=== PATIENT | female | born 1990 | race Caucasian/White ===

== ENCOUNTER 2016-12-06 16:50 | Emergency (ER) | payer BC, MEDICAID ==
[2016-12-06 17:47] VITALS: BP 114/71
[2016-12-06] MEDS ORDERED: Aspirin Low Dose CHEW TAB* 81 MG PO ONE ×2 (18:54)
--- NOTE | 2016-12-06 19:16 | ED ---
HPI Chest Pain - HPI Summary HPI Summary: Patient is a 26yo recently post- otherwise healthy female presenting with chest pain on deep inspiration. [facility] referred her here. She states this has been present for about 2 days. Denies leg pain. Denies cough. Recent illness 3-4 weeks ago but has felt better since. Denies weakness. Feel SOB d/t pain upon inspiration. Denies feelings of palpitations or heart history. denies calf pain or swelling. - History of Current Complaint Chief Complaint: EDShoulderClavicQuiquenj Hx Obtained From: Patient Onset/Duration: Started Days Ago - 6 days ago Timing: Constant Initial Severity: Moderate Current Severity: Moderate Pain Intensity: 6 Pain Scale Used: 0-10 Numeric Chest Pain Location: Discrete at: - right chest wall Chest Pain Radiates: No Character: Burning, Pressure/Squeezing Aggravating Factor(s): Deep Breaths Alleviating Factor(s): Nothing Associated Signs and Symptoms: Positive: Chest Pain, Shortness of Breath - Risk Factors Pulmonary Embolism Risk Factors: - post - Allergy/Home Medications Allergies/Adverse Reactions: Allergies Allergy/AdvReac Type Severity Reaction Status Date / Time No Known Allergies Allergy Verified 12/06/16 17:47 PMH/Surg Hx/FS Hx/Imm Hx Previously Healthy: Yes Endocrine/Hematology History: Reports: Hx Thyroid Disease Denies: Hx Diabetes Cardiovascular History: Denies: Hx Hypertension Respiratory History: Reports: Hx Asthma - albuterol mdi as needed Denies: Hx Chronic Obstructive Pulmonary Disease (COPD) GI History: Denies: Hx Ulcer Psychiatric History: Reports: Hx Anxiety Infectious Disease History: No Infectious Disease History: Denies: Hx Clostridium Difficile, Hx Hepatitis, Hx Human Immunodeficiency Virus (HIV), Hx of Known/Suspected MRSA, Hx Shingles, Hx Tuberculosis, Traveled Outside the in Last 30 Days - Social History Occupation: Employed Full-time Lives: With Family Alcohol Use: None Substance Use Type: Reports: None Smoking Status (MU): Never Smoked Tobacco Review of Systems Constitutional: Negative Eyes: Negative ENT: Negative Positive: Chest Pain - right chest wwall Positive: Shortness Of Breath Gastrointestinal: Negative Musculoskeletal: Negative Skin: Negative Neurological: Negative Positive: Anxious All Other Systems Reviewed And Are Negative: Yes Physical Exam Triage Information Reviewed: Yes Vital Signs On Initial Exam: Initial Vitals Temp Pulse Resp BP Pulse Ox 98.4 F 63 16 114/71 100 01/20/17 16:50 12/06/16 16:50 12/06/16 16:50 12/06/16 16:50 12/06/16 16:50 Vital Signs Reviewed: Yes Appearance: Positive: Well-Appearing, No Pain Distress, Well-Nourished Skin: Positive: Warm, Skin Color Reflects Adequate Perfusion Head/Face: Positive: Normal Head/Face Inspection Eyes: Positive: Normal, EOMI, LYDIA, Conjunctiva Clear Neck: Positive: Supple, Nontender, No Lymphadenopathy Respiratory/Lung Sounds: Positive: Clear to Auscultation, Breath Sounds Present Cardiovascular: Positive: Normal Musculoskeletal: Positive: Normal, Strength/ROM Intact Neurological: Positive: Normal, Sensory/Motor Intact Psychiatric: Positive: Normal Diagnostics - Vital Signs Vital Signs Temp Pulse Resp BP Pulse Ox 12/06/16 16:50 98.4 F 63 16 114/71 100 - Laboratory Result Diagrams: 12/06/16 19:49 12/06/16 19:49 Lab Statement: Any lab studies that have been ordered have been reviewed, and results considered in the medical decision making process. - CT No standard instances CT Interpretation: Positive (See Comments) - pleural effusion, cardiomegaly Chest Pain Course/Dx - Course Course Of Treatment: Patient recent 5 weeks post-. pain with deep inspiration. Wells criteria = moderate probability of DVT/PE. patient describes as pain with SOB. denies recent travel, leg pain. recent viral illness 3 weeks ago. CTA shows cardiomegaly and rt pleural effusion likely from pleuritis from viral illness. Patient encouraged naproxen 500mg twice daily and discussed risks for breast feeding while on naproxen. Dr. Elias consulted with provider. Assessment/Plan: naproxen 500mg twice daily. return precautions. - Chest Pain Differential Diagnosis/HQI/PQRI: Chest Wall, Lower Respiratory Infection, Pulmonary Edema, Pulmonary Embolism, Other: - Diagnoses Provider Diagnoses: Pleural effusion, right Is Visit Related: No Discharge - Discharge Plan Condition: Stable Disposition: HOME Prescriptions: Naproxen [Naproxen Dr] 500 mg PO Q8H #30 tab MDD 3 Naproxen [Naproxen 500 MG TABS] 500 mg PO BID #30 tab MDD 2 Patient Education Materials: Pleurisy (ED), Pleural Effusion (ED) Referrals: Sarthak Roman MD [Primary Care Provider] - Additional Instructions: You have been diagnosed with a pleural effusion. Take Naprozen 500mg twice daily for 7 days as needed for pain. If you develop worsening shortness of breath, fever or chest pain, come back to ED.
[2016-12-06 20:03] LABS: Hematocrit 41 % (35-47); Hemoglobin 13.5 g/dl (12.0-16.0); Mean Corpuscular HGB Conc 33 g/dl (31-36); Mean Corpuscular Hemoglobin 29 pg (27-31); Mean Corpuscular Volume 89 fL (80-97); Mean Platelet Volume 9 um3 (7.4-10.4); Red Blood Count 4.65 10^6/ul (4.0-5.4); Red Cell Distribution Width 13 % (10.5-15); White Blood Count 11.5 10^3/ul (3.5-10.8)
[2016-12-06 20:18] LABS: Albumin 4.2 g/dL (3.2-5.2); BUN/Creatinine Ratio 18.5 (8-20); Calcium 9.4 mg/dL (8.6-10.3); EGFR African American 142.8 (>60); EGFR Non-African American 111.1 (>60); Globulin 3.1 g/dL (2-4); Potassium 3.5 mmol/L (3.5-5.0); Total Bilirubin 0.3 mg/dL (0.2-1.0); Total Protein 7.3 g/dL (6.4-8.9)
[2016-12-06] MEDS ORDERED: Iohexol 350* (CONTRAST) 500 ML MDV IV ONE (20:21)
--- NOTE | 2016-12-06 20:56 | RAD ---
INDICATION: Pleuritic chest pain; . Intermittent RIGHT shoulder pain with deep inspiration. COMPARISON: None. TECHNIQUE: Multidetector CT images were obtained from the lung apices to the upper abdomen with 63 mL Omnipaque 350 IV contrast. Pulmonary angiogram protocol. Multiplanar reformation including with maximum intensity projection. REPORT: Small dependent RIGHT pleural effusion and minimal bibasilar dependent atelectasis. Negative for pneumothorax. Negative for thoracic lymphadenopathy. Cardiomegaly. Negative for pericardial effusion. Accounting for motion artifact the thoracic aorta is unremarkable. Motion artifact limits the CT pulmonary angiogram. No compelling filling defects are identified from the main to the segmental and where conspicuous the subsegmental pulmonary arteries to raise concern for pulmonary embolism. Unremarkable Limited images through the upper abdomen. Unremarkable osseous structures. IMPRESSION: 1. Mildly limited CT pulmonary angiogram due to motion artifact without compelling evidence for pulmonary embolism. 2. Small dependent RIGHT pleural effusion and minimal bibasilar dependent atelectasis. 3. Cardiomegaly. Negative for pericardial effusion.
[2016-12-06] MEDS ORDERED: Naproxen TAB* 250 MG PO ONE (21:47)
[2016-12-06] MEDS ORDERED: Naproxen TAB* 250 MG ONE (21:49)
== END 2016-12-06 21:58 | disposition home or self-care (01) ==
LOC: ED 16:50
DX: J90 Pleural effusion, not elsewhere classified (principal); R07.9 Chest pain, unspecified; R06.02 Shortness of breath; F41.9 Anxiety disorder, unspecified
CPT/HCPCS: 36415; 71275; 80053; 83880; 85025; 85610; 99282; A9270-GY; Q9967

== ENCOUNTER 2019-02-18 01:04 | Inpatient (IN) | payer OTHER ==
[2019-02-18] MEDS ORDERED: Lidocaine 1%* 5 ML VIAL ONE (04:47)
[2019-02-18] MEDS ORDERED: Lactated Ringers 1000 ML Bag* 1,000 ML IV ONE ×2 (04:50→05:59)
[2019-02-18] MEDS ORDERED: Buffered Lidocaine 1% SYRIN* 1 ML/SYRINGE INTRADERM ONE (04:50)
[2019-02-18] MEDS ORDERED: Lactated Ringers 1000 ML Bag* 1,000 ML IV SCH ×3 (05:00→12:00)
--- NOTE | 2019-02-18 05:03 | HP ---
General Information - Reason for Visit IUP@40+1 in labor - General Information Maternal Age: 28 Grav: 3 Para: 2 SAB: 0 IEA: 0 Estimated Due Date: 02/17/19 Determined By: Early Ultrasound Gestational Age in Weeks/Days: 40+1 Maternal Blood Type and Rh: O Positive - Results this Serology/RPR Result: Non-Reactive Rubella Result: Immune HBsAg Result: Negative HIV Result: Negative GBS Culture Result: Positive Past Medical History Delivery History: Hx Uncomplicated Vaginal Delivery Pertinent Past Medical History: See Records - hypothyroidism (on replacement) Past Medical History Comment: Migraine; back pain; asthma Pertinent Past Surgical History: None Pertinent Family History: See Records Family History Comment: Mother: cervical cancer; hypothyroid Father: , renal cell carcinoma PGM: diabetes MGM: HTN, diabetes, colon cancer MGF: , liver disease - Antepartal Records Antepartal Records: Reviewed, Complicated by: - hypothyroidism, GBS+ Review of Systems Constitutional: Uncomfortable CV Complaint: No Respiratory: Shortness of Breath: No Gastrointestinal: No Nausea/Vomiting Genitourinary: No Dysuria, No Bleeding, No Leaking Fluid Musculoskeletal: Contractions Neurological: No Headache Movement: Normal Exam Allergies/Adverse Reactions: Allergies No Known Allergies Allergy (Verified 02/18/19 02:12) HR 81, temp 98.6. BP 118/80, O2 100% - Measurements Height: 5 ft 3 in Weight: 175 lb Weight in lbs: [phone] Body Mass Index (BMI): 30.9 Pre- Weight: 128 lb Weight Gained This : 47 lbs and 0 ozs - Exam Breast: Breast Exam Deferred CVA: No CVA Tenderness Extremities: No Edema Targeted Exam Findings Estimated Weight: 7lbs Cervical Exam: 4cm Effacement: 80% Station: -1 Presenting Part: Vertex Membrane Status: Intact Bleeding/Discharge: None EFM Findings - External Monitor Findings Baseline Heart Rate: 135 External Monitor Findings: Accelerations Present, No Pattern of Variable or Late Decelerations, Variability Moderate External Monitor Findings Comment: No evidence of metabolic acidemia Contractions: Regular, Strong, 45-90 Seconds Assessment/Plan - Assessment , IUP@40+1 GBS+ Hypothyroidism (on replacement) Regular contractions VE: 4/90/-1, vtx, IBOW No evidence of metabolic acidemia - Obstetrical Risk Factors Obstetrical Risk Factors: GBS Positive - Plan Plan: Admit - Anticipate Vaginal Delivery Plan Comment: Admit to L&D Abx for GBS prophylaxis Epidural now Anticipate progression to - Date/Time of Admission Date of Admission: 02/18/19 Time of Admission: 05:15
[2019-02-18 05:27] LABS: Hematocrit 38 % (33-41); Hemoglobin 12.8 g/dL (12.0-16.0); Mean Corpuscular HGB Conc 34 g/dL (31-36); Mean Corpuscular Hemoglobin 30 pg (27-31); Mean Corpuscular Volume 90 fL (80-97); Mean Platelet Volume 9.6 fL (7.4-10.4); Platelet Count 230 10^3/uL (150-450); Red Blood Count 4.23 10^6 /uL (3.70-4.87); Red Cell Distribution Width 14 % (10.5-15); White Blood Count 11.8 10^3/uL (3.5-10.8)
[2019-02-18 05:45] LABS: ABS Basophils 0 10^3/ul (0-0.2); ABS Eosinophils 0.1 10^3/ul (0-0.6); ABS Lymphocytes 2.8 10^3/ul (1.0-4.8); ABS Monocytes 0.9 10^3/ul (0-0.8); ABS Neutrophils 7.9 10^3/ul (1.5-7.7); ABS Nucleated RBC 0 10^3/ul; Lymphocyte % 23.9 %; Nucleated Red Blood Cells % 0.1
[2019-02-18] MEDS ORDERED: OBEPIDURAL* 250 ML EPIDURAL ONE (05:49)
[2019-02-18] MEDS ORDERED: Phenylephrine 40 MCG/ML SYRINGE IV PUSH PRN ×2 (05:59)
[2019-02-18] MEDS ORDERED: Sodium Citrate/Citric Acid* 15 ML UDC PO PRN (05:59)
[2019-02-18] MEDS ORDERED: Penicillin G Potassium IV* 5,000,000 UNITS in NS 0.9% 100 ML* 100 ML IVPB ONE (06:00)
[2019-02-18] MEDS ORDERED: OBEPIDURAL* 250 ML EPIDURAL SCH (06:00)
[2019-02-18] MEDS ORDERED: Albuterol HFA INHALER* 8 gm MDI INH PRN (06:00)
--- NOTE | 2019-02-18 06:48 | PN ---
Progress Note - Progress Note Date of Service: 02/18/19 Note: S: pt is comfortable with epidural. resting between contractions. shaky. O: VSS FHT: 140, moderate variability, +accels, occasional early decelerations VE: 6/100/-1, vtx UC: q4-6 (coupling) A: , IUP@40+1 Active labor CEI infusing No evidence of acidemia 1 dose abx for GBS prophylaxis infused P: Anticipate progression to
[2019-02-18] MEDS: Levothyroxine TAB* 100 MCG TAB PO SCH (07:20)
[2019-02-18] MEDS ORDERED: Oxytocin in LR* 20 UNITS/1,000 ML BAG IVPB ONE (08:34)
--- NOTE | 2019-02-18 08:50 | PN ---
Progress Note - Progress Note Date of Service: 02/18/19 Note: S: Reports good relief with CEI. Shakiness and feeling more pressure with UCs. O: VS: B/P: 119/70, P: 83, T: 98.4 FHR: baseline 145, moderate variability, +accelerations, no decelerations UCs: q2-4 minutes, 45-90s each, moderate VE: 8/100/-1, intact. Bloody show A: IUP at 40 1/7 days GBS positive P: Continue GBS prophylaxis per protocol AROM attempted, pt reports some trickling of fluid, will continue to monitor Anticipate , reassess in 2 hours or sooner as indicated
[2019-02-18] MEDS ORDERED: Penicillin G Potassium IV* 2,500,000 UNITS in NS 0.9% 100 ML* 100 ML IVPB SCH (10:00)
[2019-02-18] MEDS ORDERED: Dibucaine 1% 28.35 GM TUBE ONE (10:46)
[2019-02-18] MEDS ORDERED: Witch Hazel PAD* JAR ONE (10:46)
--- NOTE | 2019-02-18 11:07 | PROCNOTE ---
[facility] OB: Delivery Note - Delivery A Date of : 02/18/19 Time of : 10:33 [place] Sex: Female Score 1 Minute: 9 Score 5 Minutes: 9 Gestational Age in Weeks and Days at Delivery: 40 Weeks and 1 Days Delivery Method: Spontaneous Vaginal Labor: Spontaneous Did Patient attempt ?: N/A, No Previous Amniotic Fluid: Clear Estimated Blood Loss: 350 Anesthesia/Analgesia: CEI for Labor Delivered By: Peri Pillai - Nursery Level of Nursery: Regular/Bedside - Perineum Perineal Injury: Perineal Laceration, 1st Degree Perineal Repair: By Delivering Practioner - Events Delivery Events of Note: Pitocin Only After Delivery, Full Course of Antibiotics - Additional Delivery Notes Additional Delivery Notes: 28 yo in spontaneous labor progressed to complete and complete, began pushing with good progress to delivery of liveborn female infant OA to JACKIE, compound hand presentation. Loose nuchal x 1 reduced and shoulders followed easily with next push. Infant to mother's chest, bulb suctioned for copious oral secretions, dried and stimulated with spontaneous cry noted. Cord ceased pulsating, clamped x 2 and cut by FOB. Srivastava delivery of intact placenta soon followed, pitocin initiated at 250 cc for history of PP hemorrhage, fundus firm with massage. Perineum inspected and first degree perineal laceration noted , repaired with 3-0 vicryl in the usual fashion. Fundus firm, pitocin reduced to 150 cc/hr. Mother and baby in stable condition at time of note. JDE=398 cc
[2019-02-18] MEDS ORDERED: Witch Hazel PAD* JAR TOPICAL PRN (11:12)
[2019-02-18] MEDS ORDERED: Glycerin ADULT SUPP PR PRN (11:12)
[2019-02-18] MEDS ORDERED: Acetaminophen TAB* 325 MG PO PRN (11:12)
[2019-02-18] MEDS ORDERED: Dibucaine 1% 28.35 GM TUBE PR PRN (11:12)
[2019-02-18] MEDS ORDERED: Simethicone TAB* 80 MG TAB.CHEW PO SCH (12:30)
[2019-02-18] MEDS: Docusate CAP* 100 MG PO SCH ×2 (13:52→21:16)
[2019-02-18] MEDS: Ibuprofen TAB* 600 MG PO PRN ×2 (16:07→22:11)
[2019-02-19] MEDS: Ibuprofen TAB* 600 MG PO PRN ×3 (04:20→20:52)
[2019-02-19 07:56] LABS: ABS Basophils 0 10^3/ul (0-0.2); ABS Eosinophils 0.1 10^3/ul (0-0.6); ABS Lymphocytes 2.6 10^3/ul (1.0-4.8); ABS Monocytes 0.7 10^3/ul (0-0.8); ABS Neutrophils 6.6 10^3/ul (1.5-7.7); ABS Nucleated RBC 0 10^3/ul; Eosinophil % 1.3 %; Hematocrit 37 % (33-41); Hemoglobin 12.3 g/dL (12.0-16.0); Mean Corpuscular HGB Conc 33 g/dL (31-36); Mean Corpuscular Hemoglobin 31 pg (27-31); Mean Corpuscular Volume 91 fL (80-97); Mean Platelet Volume 9.3 fL (7.4-10.4); Nucleated Red Blood Cells % 0.1; Platelet Count 204 10^3/uL (150-450); Red Blood Count 4.04 10^6 /uL (3.70-4.87); Red Cell Distribution Width 14 % (10.5-15); White Blood Count 10.1 10^3/uL (3.5-10.8)
[2019-02-19] MEDS: Docusate CAP* 100 MG PO SCH ×3 (08:21→20:52)
[2019-02-19] MEDS: Levothyroxine TAB* 100 MCG TAB PO SCH (08:22)
[2019-02-19] MEDS ORDERED: Ferrous Gluconate TAB* 324 MG TAB PO SCH (09:00)
[2019-02-19] MEDS: Prenatal Vitamin TAB PO SCH ×2 (09:04→09:16)
[2019-02-20] MEDS: Ibuprofen TAB* 600 MG PO PRN (06:10)
[2019-02-20] MEDS: Levothyroxine TAB* 100 MCG TAB PO SCH (06:10)
[2019-02-20 08:44] VITALS: BP 107/58
[2019-02-20] MEDS: Docusate CAP* 100 MG PO SCH (09:30)
[2019-02-20] MEDS: Prenatal Vitamin TAB PO SCH (09:51)
== END 2019-02-20 11:09 | disposition home or self-care (01) | DRG 560 ==
LOC: MCHOBOUT 01:04 → MCHOB 05:16
PROVIDERS: ADMIT Advanced Practice Midwife; ATTEND Advanced Practice Midwife
PROC: 10E0XZZ Delivery of Products of Conception, External Approach (ICD-10-PCS; principal; 2019-02-18)
PROC: 10907ZC Drainage of Amniotic Fluid, Therapeutic from Products of Conception, Via Natural or Artificial Opening (ICD-10-PCS; 2019-02-18)
PROC: 4A1HXCZ Monitoring of Products of Conception, Cardiac Rate, External Approach (ICD-10-PCS; 2019-02-18)
PROC: 0HQ9XZZ Repair Perineum Skin, External Approach (ICD-10-PCS; 2019-02-18)
DX: O48.0 Post-term pregnancy (principal); Z37.0 Single live birth; O99.284 Endocrine, nutritional and metabolic diseases complicating childbirth; O99.824 Streptococcus B carrier state complicating childbirth; E03.9 Hypothyroidism, unspecified; O32.6XX0 Maternal care for compound presentation, not applicable or unspecified; O32.2XX0 Maternal care for transverse and oblique lie, not applicable or unspecified; O99.52 Diseases of the respiratory system complicating childbirth; J45.909 Unspecified asthma, uncomplicated; O69.81X0 Labor and delivery complicated by cord around neck, without compression, not applicable or unspecified; Z3A.40 40 weeks gestation of pregnancy; O70.0 First degree perineal laceration during delivery; O76 Abnormality in fetal heart rate and rhythm complicating labor and delivery
CPT/HCPCS: 36415; 85025; 86850; 86900; 86901; A9270-GY; J2540